=== PATIENT | female | born 1950 | race Asian ===

== ENCOUNTER 2016-05-27 09:25 | Outpatient (CLI) | payer BC ==
--- NOTE | 2016-05-27 11:04 | XRay Report ---
RIGHT TIBIA/FIBULA: History: Right leg pain AP and lateral views of the right tibia/fibula demonstrate normal mineralization and contours for this patient's age. No destructive changes are noted and the adjacent soft tissues are normal. IMPRESSION: Unremarkable right tibia/fibula.
== END 2016-05-27 09:26 | disposition home or self-care (01) ==
LOC: XRAY 09:25
PROVIDERS: ATTEND Family Medicine Adult Medicine
DX: M79.604 Pain in right leg (principal)